=== PATIENT | female | born 1995 | race Caucasian/White ===

== ENCOUNTER 2020-09-05 05:07 | Inpatient (IN) ==
[2020-09-05] MEDS ORDERED: MEPERIDINE 50 MG/1 ML VIAL IV PRN (05:45)
[2020-09-05] MEDS ORDERED: ONDANSETRON 4 MG/2 ML VIAL IV PRN (05:45)
[2020-09-05] MEDS ORDERED: BUTORPHANOL 2 MG/ML VIAL IV PRN (05:45)
[2020-09-05] MEDS ORDERED: LACTATED RINGERS 1,000 ML IV ONE ×2 (06:00→08:24)
[2020-09-05 06:15] LABS: Basophils # 0.1 10*3/uL (0.0-0.2); Basophils % 0.6 % (0.0-0.8); Eosinophils # 0.3 10*3/uL (0.0-0.87); Hematocrit 31.9 VOL% (35.7-47.0); Hemoglobin 10.6 GM/DL (12.0-16.0); Immature Granulocytes % 1.1 %; Immature Granulocytes Absolute 0.19 #; Lymphocytes # 3.5 10*3/uL (1.4-4.0); Mean Corpuscular HGB Conc 33.2 GM/DL (32-36); Mean Corpuscular Volume 84.6 FL (87-102); Mean Platelet Volume 11.1 FL (9.6-12.0); Neutrophils % 68.3 % (38.7-73.9); Platelet Count 392 T/CUMM (130-400); Red Blood Count 3.77 MC/CUMM (3.8-5.5); Red Cell Distribution Width 13.6 % (9.3-17.3); White Blood Count 16.8 T/CUMM (4-12)
[2020-09-05] MEDS ORDERED: AMPICILLIN INJ 2,000 MG in SODIUM CHLORIDE 0.9% 100 ML IV ONE (06:58)
[2020-09-05] MEDS: OXYTOCIN/LR 20 UNIT/1,000 ML BAG IV SCH (07:20)
[2020-09-05] MEDS ORDERED: NALOXONE 0.4 MG/ML VIAL IV PRN (08:24)
[2020-09-05] MEDS ORDERED: CITRIC ACID/SODIUM CITRATE 30 ML UDCUP PO ONE (08:24)
[2020-09-05] MEDS ORDERED: FAMOTIDINE 20 MG/2 ML VIAL IV ONE (08:24)
[2020-09-05] MEDS ORDERED: ePHEDrine 50 MG/ML VIAL IV PRN (08:24)
[2020-09-05] MEDS: fentaNYL 2 MCG/ROPIV 0.2% EPID 100 ML EPIDURAL SCH ×3 (09:26→23:02)
[2020-09-05 11:03] LABS: Bilirubin,Urine Negative (Negative); Blood, Urine Negative (Negative); Glucose,Urine (UA) Negative (Negative); Ketones,Urine Negative (Negative); Nitrite,Urine Negative (Negative); Protein,Urine Negative; Squamous Epithelial Cell,Urine Occasional /HPF (0-10); Urine Appearance CLEAR (Clear); Urine Color Straw (Yellow); Urine Specific Gravity 1.005 (1.001-1.035); Urine Urobilinogen < 2.0 EU/DL (0.2-1.0)
[2020-09-05] MEDS: AMPICILLIN INJ 1,000 MG in SODIUM CHLORIDE 0.9% 100 ML IV SCH ×4 (11:03→23:48)
[2020-09-05] MEDS: LACTATED RINGERS 1,000 ML IV SCH ×2 (14:52→20:08)
[2020-09-05] MEDS ORDERED: TRANEXAMIC ACID 1,000 MG/10 ML VIAL ONE (20:19)
[2020-09-05] MEDS ORDERED: miSOPROStoL 200 MCG TABLET ONE (20:19)
[2020-09-05] MEDS ORDERED: CARBOPROST TROMETHAMINE 250 MCG/ML AMP IM ONE (20:20)
[2020-09-05] MEDS ORDERED: METHYLERGONOVINE 0.2 MG/1 ML AMP ONE (20:20)
[2020-09-05] MEDS ORDERED: SODIUM CHLORIDE 0.9% 0 ML IV ONE (20:20)
[2020-09-06] MEDS ORDERED: METHYLERGONOVINE 0.2 MG/1 ML AMP IM ONE (00:57)
[2020-09-06] MEDS ORDERED: OXYTOCIN 10 UNIT/ML VIAL ONE (01:24)
[2020-09-06] MEDS: OXYTOCIN/LR 20 UNIT/1,000 ML BAG IV SCH (01:31)
[2020-09-06] MEDS ORDERED: BISACODYL 10 MG SUPP RECTAL PRN (01:34)
[2020-09-06] MEDS ORDERED: BENZOCAINE 20%/MENTHOL 0.5% SPRAY 56 GM CAN TOP PRN (01:34)
[2020-09-06] MEDS ORDERED: ACETAMINOPHEN 325 MG TABLET PO PRN (01:34)
[2020-09-06] MEDS ORDERED: MEASLES/MUMPS/RUBELLA VACCINE 0.5 ML VIAL SUBCUT ONE (01:34)
[2020-09-06] MEDS ORDERED: DIPH/TET/ACEL PERT BOOSTER VACCINE 0.5 ML VIAL IM ONE (01:34)
[2020-09-06] MEDS ORDERED: DOCUSATE/SENNA 50-8.6 MG TABLET PO PRN (01:34)
[2020-09-06] MEDS ORDERED: WITCH HAZEL PADS 100/JAR TOP PRN (01:34)
[2020-09-06] MEDS ORDERED: LANOLIN 50% CREAM 0.3 OZ TUBE TOP PRN (01:34)
[2020-09-06 01:35] LABS: Cord Venous Blood HCO3 19.1 MMOL/L; Cord Venous Blood PO2 17.8
[2020-09-06] MEDS: HYDROCORTISONE 2.5% RECTAL CREAM 30 GM TUBE TOP PRN (04:00)
[2020-09-06] MEDS: IBUPROFEN 800 MG TABLET PO PRN ×3 (04:07→23:21)
[2020-09-06 06:05] LABS: Barbiturates Screen,Urine Negative (Negative); Benzodiazepines Screen,Urine Negative (Negative); Cannabinoid Screen,Urine Positive (Negative); Opiate Screen,Urine Negative (Negative); Phencyclidine Screen,Urine Negative (Negative)
[2020-09-06 08:38] LABS: Basophils # 0.1 10*3/uL (0.0-0.2); Basophils % 0.3 % (0.0-0.8); Eosinophils # 0.2 10*3/uL (0.0-0.87); Eosinophils % 0.8 % (0.00-10.9); Hematocrit 32.1 VOL% (35.7-47.0); Hemoglobin 10.8 GM/DL (12.0-16.0); Immature Granulocytes % 0.7 %; Immature Granulocytes Absolute 0.19 #; Lymphocytes # 3.1 10*3/uL (1.4-4.0); Lymphocytes % 11.7 % (21.3-54.2); Mean Corpuscular HGB Conc 33.6 GM/DL (32-36); Mean Corpuscular Volume 84.7 FL (87-102); Mean Platelet Volume 10.8 FL (9.6-12.0); Monocytes % 6.1 % (1.7-12.7); Neutrophils % 80.4 % (38.7-73.9); Platelet Count 344 T/CUMM (130-400); Red Blood Count 3.79 MC/CUMM (3.8-5.5); Red Cell Distribution Width 13.8 % (9.3-17.3); White Blood Count 26.2 T/CUMM (4-12)
[2020-09-06 09:32] LABS: Eosinophils 1 % (0-10); Hypochromasia 1+; Lymphocytes 6 % (20-55); Platelet Estimate Normal; Polychromasia Slight; Segmented Neutrophils 89 % (50-85); Total Cells Counted 100
[2020-09-06] MEDS: FERROUS SULFATE 325 MG TABLET PO SCH ×3 (10:11→21:00)
[2020-09-06] MEDS: MULTIVITAMIN (PRENATAL) TABLET PO SCH (10:11)
[2020-09-06] MEDS: DOCUSATE SODIUM 100 MG CAPSULE PO SCH ×3 (10:11→21:00)
[2020-09-07] MEDS: IBUPROFEN 800 MG TABLET PO PRN ×2 (05:39→21:12)
[2020-09-07] MEDS: MULTIVITAMIN (PRENATAL) TABLET PO SCH (08:36)
[2020-09-07] MEDS: DOCUSATE SODIUM 100 MG CAPSULE PO SCH ×2 (08:36→21:12)
[2020-09-07] MEDS: FERROUS SULFATE 325 MG TABLET PO SCH ×2 (08:36→21:12)
[2020-09-07] MEDS: HYDROCORTISONE 2.5% RECTAL CREAM 30 GM TUBE TOP PRN (13:11)
[2020-09-08] MEDS: IBUPROFEN 800 MG TABLET PO PRN (07:21)
[2020-09-08] MEDS: DOCUSATE SODIUM 100 MG CAPSULE PO SCH (08:53)
[2020-09-08] MEDS: MULTIVITAMIN (PRENATAL) TABLET PO SCH (09:06)
[2020-09-08] MEDS: FERROUS SULFATE 325 MG TABLET PO SCH (09:06)
[2020-09-08 12:33] VITALS: BP 119/59
== END 2020-09-08 13:30 | disposition home or self-care (01) | DRG 560 ==
LOC: N.LD 05:07 → N.OB 09-06 03:35
PROVIDERS: ADMIT Obstetrics & Gynecology; ATTEND Obstetrics & Gynecology